=== PATIENT | female | born 1950 | race Caucasian/White ===

== ENCOUNTER 2024-03-21 14:22 | Outpatient (AMB) | payer MEDICARE, SELFPAY ==
--- NOTE | 2024-03-21 14:22 | A.OFFVIS_ITS ---
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 Patient states right shoulder surgery was discussed but due to multiple complex medical issues it would be a difficult recovery. She has received multiple cortisone injections at [facility] with last injection about 1 week ago per patient. Patient reports multiple falls due to advancing neuropathy in both feet and legs. Reports recent fall 3 weeks ago and was diagnosed T12 compression fracture per lumbar spine xray at [facility]. Reports currently treated with medication and has not considered any interventional treatments at this time. She reports moderate-severe mid to low back pain with midline tenderness, worse with lumbar extension. She reports history of old comp ression fractures which have been stable. Patient has been managing her pain Opana, amantadine, oxymorphone, and has taken low dose NSAID with caution due to CKD stage 3. Patient reports exacerbation of right shoulder pain with any activity especially with overhead reaching, cross body movement and range of motion of the RUE with moderate to severe pain. She has noted weakness with hand grasp as well as difficulty opening jars and intermittent numbness and tingling. Patient uses walker with seat with transfers and ambulation. Patient completed PT in the past with minimal improvement. She reports her pain has been progressively worsening and she in no longer able to participate in home exercise program. Denies any fever, chills, dizziness, chest pain or pressure, bladder or bowel dysfunction or saddle anesthesia. Location: Right shoulder, mid-low midline back pain, bilateral feet Duration: Chronic pain for many years, progressively worsening Characteristics of symptom or complaint: Aching, sharp, burning, tingling, numbness, stabbing, throbbing Aggravating or associated factors: Any movement, pulling, ROM, walking, sleep Relieving factors: Minimal relief with injections, OTC/Rx medications, heat/ice Treatment: PT, Injections, prior right shoulder surgery [facility] Medical History (Updated 03/22/24 @ 09:49 by JAQUELINE Whitley) Osteoarthritis of right shoulder Neuropathic pain Opioid dependence Hypertension Hypothyroidism Stage 3 chronic kidney disease Right shoulder pain Leg swelling Surgical History (Updated 03/22/24 @ 09:49 by JAQUELINE Whitley) History of shoulder surgery Social History (Updated 03/21/24 @ 14:36 by Lelia Matthews) Alcohol intake: current Alcohol intake frequency: a few times a month Review of Systems Const All systems reviewed & are unremarkable except as noted in HPI and below Physical Exam Vital Signs: Last Vital Signs Pulse 68 03/21/24 14:27 BP 130/78 03/21/24 14:27 Pulse Ox 97 03/21/24 14:27 Oxygen Delivery Method Room Air 03/21/24 14:27 BMI result Body Mass Index 29.2 General: Appears afebrile. Alert and oriented. Mood and affect appropriate. Follows and participates in conversation appropriately. Respiratory effort is unlabored. No cough. Able to transition from sit to stand with assistance of walker with seat. Neck Neck: Yes normal visual inspection, Yes no lymphadenopathy, Yes supple, No anterior neck swelling and Yes no JVD General: Yes no CVA tenderness Back/Spine/Pelvis Back: no CVA tenderness Cervical Spine: cervical muscular tenderness, pain with cervical ROM and No Cervical spine tenderness Thoracic/Lumbar Spine: thoracic and lumbar spine normal to inspection, No Thoracic/lumbar spine scar(s), Lasegue's sign negative, straight leg raise negative bilaterally, pain with thoraco-lumbar ROM, paraspinal muscle tenderness, thoraco-lumbar ROM limited, thoracic spinal tenderness (lower thoracic) and lumbar spinal tenderness (mid-lower spine) Pelvis: no buttock tenderness Sacroiliac joints: bilaterally nontender Extrem Other: There is decreased sensation over the soles of the feet and the toes bilaterally. Reports numbness, burning, hot, tingling in both feet, worse at night time. No soft tissue swelling or warmth. +2 pedal pulses bilaterally. General: Yes capillary refill normal, Yes no calf tenderness, No clubbing, No cyanosis and Yes edema (+1 BLE) Right upper extremity: shoulder/upper arm (Limited ROM due to pain with IR/ER ) Details: tenderness Location: of the A-C joint and over the subacromial bursa, swelling (mild global right shoulder) and crepitus; no ecchymosis and no unusual warmth Results Reviewed Results Reviewed: No imaging reports are available for review today. Assessment & Plan Assessment & Plan (1) T12 compression fracture: Code(s): S22.080A - Wedge compression fracture of T11-T12 vertebra, initial encounter for closed fracture Category: Medical (2) Intractable low back pain: Code(s): M54.59 - Other low back pain Category: Medical (3) Lumbar degenerative disc disease: Code(s): M51.36 - Other intervertebral disc degeneration, lumbar region Category: Medical (4) Chronic neuropathic pain: Code(s): M79.2 - Neuralgia and neuritis, unspecified; G89.29 - Other chronic pain Category: Medical (5) Osteoarthritis of right shoulder: Code(s): M19.011 - Primary osteoarthritis, right shoulder Category: Medical (6) Right shoulder pain: Code(s): M25.511 - Pain in right shoulder Category: Medical Plan Discussed interventional treatments for chronic right shoulder pain, including right suprascapular nerve block for potential RFA vs suprascapular peripheral nerve stimulator and PRP injections. Schedule Right Diagnostic Surpascaupular nerve block with local and fluoroscopy. Expectations, risks and benefits were reviewed. Patient is aware she will be contacted to schedule this procedure. If no relief, will consider PRP intra- articular shoulder injection per patient's request. Will try to arrange topical 8% capsaicin application for bilateral foot neuropathic pain once we have confirmed availability. We also discussed neuromodulation with SCS trial vs implant. Informational pamphlets were provided today for procedures discussed today. Medical release request sent to [facility] for most recent lumbar spine xrays. Will proceed with lumbar spine MRI to further evaluate recent T12 compression fracture due to mechanical fall. Patient requests open MRI at [facility]. All questions and concerns have been answered and the patient agreed with the plan. Follow up after injections/MRI review and sooner as needed. Orders: Orders MR lumbar spine wo con 03/21/24 M51.36 - Other intervertebral disc degeneration, lumbar region, M54.59 - Other low back pain, S22.080A - Wedge compression fracture of T11-T12 vertebra, initial encounter for closed fracture Coding Level of Care Code New Pt Level 4 (73619) Diagnoses T12 compression fracture S22.080A Intractable low back pain M54.59 Lumbar degenerative disc disease M51.36 Chronic neuropathic pain M79.2; G89.29 Osteoarthritis of right shoulder M19.011 Right shoulder pain M25.511
[2024-03-21 14:27] VITALS: BP 130/78; PULSE 68; O2SAT 97; BMI 29.2
== END 2024-03-21 15:30 | disposition home or self-care (01) ==
PROVIDERS: PCP Family Medicine; Referring Provider Internal Medicine; Visit Provider Nurse Practitioner Family
DX: G89.29 Other chronic pain (principal); M25.511 Pain in right shoulder; M19.011 Primary osteoarthritis, right shoulder; M54.59 Other low back pain; M51.36 Other intervertebral disc degeneration, lumbar region; M79.2 Neuralgia and neuritis, unspecified; S22.080A Wedge compression fracture of T11-T12 vertebra, initial encounter for closed fracture
CPT/HCPCS: 99204

== ENCOUNTER → 2024-03-21 14:22 | Outpatient (BNVA) | payer MEDICARE, SELFPAY | PROVIDERS: PCP Family Medicine; Referring Provider Internal Medicine; Visit Provider Nurse Practitioner Family | DX: M19.011 Primary osteoarthritis, right shoulder (principal); M51.36 Other intervertebral disc degeneration, lumbar region; M79.2 Neuralgia and neuritis, unspecified; G89.29 Other chronic pain; S22.080D Wedge compression fracture of T11-T12 vertebra, subsequent encounter for fracture with routine healing; X58.XXXD Exposure to other specified factors, subsequent encounter | CPT/HCPCS: 99202 ==

== ENCOUNTER 2024-04-17 15:17 | Outpatient (AMB) | payer MEDICARE, SELFPAY ==
[2024-04-17 15:18] VITALS: BMI 29.5
--- NOTE | 2024-04-17 15:18 | MHC.OFFVIS ---
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 Denies any recent cough, cold, infection, fever, any significant changes in her medical history, medications or recent hospitalizations. PRIOR: Patient is a pleasant 73 years old female with prior history of chronic right shoulder pain due severe arthritis and rotator cuff tendinopathy posttraumatic after fall and humerus fracture and previous rotator cuff repair, CKD, opioid dependence, and chronic severe lower extremities neuropathic pain has been referred to our office by her PCP for potential shoulder nerve ablation and treatments for neuropathy. Patient states right shoulder surgery was discussed but due to multiple complex medical issues it would be a difficult recovery. She has received multiple cortisone injections at [facility] with last injection about 1 week ago per patient. Patient reports multiple falls due to advancing neuropathy in both feet and legs. Reports recent fall 3 weeks ago and was diagnosed T12 compression fracture per lumbar spine xray at [facility]. Reports currently treated with medication and has not considered any interventional treatments at this time. She reports moderate-severe mid to low back pain with midline tenderness, worse with lumbar extension. She reports history of old compression fractures which have been stable. Patient has been managing her pain Opana, amantadine, oxymorphone, and has taken low dose NSAID with caution due to CKD stage 3. Patient reports exacerbation of right shoulder pain with any activity especially with overhead reaching, cross body movement and range of motion of the RUE with moderate to severe pain. She has noted weakness with hand grasp as well as difficulty opening jars and intermittent numbness and tingling. Patient uses walker with seat with transfers and ambulation. Patient completed PT in the past with minimal improvement. She reports her pain has been progressively worsening and she in no longer able to participate in home exercise program. Denies any fever, chills, dizziness, chest pain or pressure, bladder or bowel dysfunction or saddle anesthesia. Location: Right shoulder, mid-low midline back pain, bilateral feet Duration: Chronic pain for many years, progressively worsening Characteristics of symptom or complaint: Aching, sharp, burning, tingling, numbness, stabbing, throbbing Aggravating or associated factors: Any movement, pulling, ROM, walking, sleep Relieving factors: Minimal relief with injections, OTC/Rx medications, heat/ice Treatment: PT, Injections, prior right shoulder surgery [facility] Medical History Osteoarthritis of right shoulder Neuropathic pain Opioid dependence Hypertension Hypothyroidism Stage 3 chronic kidney disease Right shoulder pain Leg swelling Surgical History History of shoulder surgery Social History Alcohol intake: current Alcohol intake frequency: a few times a month Review of Systems Const All systems reviewed & are unremarkable except as noted in HPI and below ENT Reports Normal hearing present Neuro Reports Normal hearing present and Denies confusion Psych Denies confusion Physical Exam Const General: cooperative, alert and awake; No confusion Orientation/consciousness: patient oriented x3 and No confusion Resp Effort & Inspection: able to speak in complete sentences, no audible wheezes and no cough Neuro General: patient oriented x3 and No confusion Cranial nerves: Yes Normal hearing present Cognition (Neuro): normal cognition Psych Mental Status: mental status grossly normal Speech and movement: Clear speech present Affect: normal affect Attitude: cooperative Thought process: Normal thought process present Thought content: Normal thought content present and No Depressive thoughts present Insight: Good insight present (Psych) Judgement: Good judgement present (Psych) Telehealth Telehealth Telehealth Platform: Telephone Location of provider rendering services: practice address Location of patient: address on file Patient Identification confirmed using: Name, : Yes Telehealth method: voice only Patient verbally consented to treatment: Yes Patient verbally consented to billing insurance company: Yes Patient informed of any privacy concerns related to visit: Yes Minutes spent on Phone/Video with Pt.: 16 Results Reviewed Results Reviewed: MR SPINE LUMBAR without CONTRAST 03/30/24 at [facility] INDICATION: Low back pain for 3 years. Evaluate wedge compression fracture. TECHNIQUE: Unenhanced multiplanar, multisequence MR imaging of the lumbar spine. COMPARISON: XR lumbar 03/15/2024 - REPORT ONLY, (images unavailable). FINDINGS: Ffqa-nk-nyropcsb multilevel degenerative disc disease with loss of disc height and disc desiccation seen diffusely throughout the lumbar spine. There is appears to be an inferior endplate depression fracture at T12 level. No significant retropulsion. Vertebral heights otherwise preserved. No malalignment. At L1-2 concentric disc bulge with gzxe-sk-rbgoqukj canal narrowing and moderate bilateral foraminal narrowing. At L2-3 concentric disc bulge and slight retrolisthesis of L2 on L3 with zlzm-as-nwliwlse canal narrowing and moderate bilateral foraminal narrowing. Type II endplate changes seen at this level. At L3-4 concentric disc bulge with at least moderate canal narrowing and moderate bilateral foraminal narrowing. At L4-5 concentric disc bulge with nfqs-ou-mdilfuvo canal narrowing and moderate bilateral foraminal narrowing. At L5-S1 concentric disc bulge with bxpz-zv-bompboog canal narrowing and moderate bilateral foraminal narrowing. IMPRESSION: 1. Ocmy-mc-nyberxig multilevel degenerative disc disease with loss of disc height and disc desiccation seen diffusely throughout the lumbar spine. 2. Inferior endplate depression fracture at L1 level. Mild loss of vertebral height. No significant retropulsion. 3. Vertebral heights otherwise preserved. No malalignment. 4. At L2-3 concentric disc bulge and slight retrolisthesis of L2 on L3 with zamv-hz-pmkgcuda canal narrowing and moderate bilateral foraminal narrowing. Type II endplate changes seen at this level. 5. At L3-4 concentric disc bulge with at least moderate canal narrowing and moderate bilateral foraminal narrowing. 6. At remaining levels, canal and foraminal narrowing appear mild/zcyw-ko-kvhodcff. 7. STIR signal abnormality associated with the compression fracture at T12 level. No other STIR signal abnormalities to suggest soft tissue or ligamentous injury. Assessment & Plan Assessment & Plan (1) T12 compression fracture: Code(s): S22.080A - Wedge compression fracture of T11-T12 vertebra, initial encounter for closed fracture Category: Medical (2) Intractable low back pain: Code(s): M54.59 - Other low back pain Category: Medical (3) Chronic neuropathic pain: Code(s): M79.2 - Neuralgia and neuritis, unspecified; G89.29 - Other chronic pain Category: Medical (4) Right shoulder pain: Code(s): M25.511 - Pain in right shoulder Category: Medical (5) Lumbar degenerative disc disease: Code(s): M51.36 - Other intervertebral disc degeneration, lumbar region Category: Medical (6) Osteoarthritis of right shoulder: Code(s): M19.011 - Primary osteoarthritis, right shoulder Category: Medical Plan Discussed lumbar spine MRI results, significant for inferior endplate depression fracture at T12 level. No significant retropulsion. Patient is scheduled for Bone scan tomorrow and will notify our office with results. Will review MRI imaging with Dr. Resendez to assess degree of retropulsion prior to consideration of T12 kyphoplasty. Right shoulder pain-patient would like to hold off on right diagnostic suprascapular nerve block at this time. Topical 8% capsaicin application for bilateral foot neuropathic pain has been scheduled for 05/18/24. We reviewed this procedure today again. EMLA cream has been sent to patient's pharmacy to be applied 15-30 min prior to upcoming Qutenza visit. All questions and concerns have been answered and the patient agreed with the plan. Follow up bone scan review and sooner as needed. I hereby testify that I spent 16 minutes in conversation with this patient as well as with planning and coordinating care for this patient and organizing this note. Coding Level of Care Code Tele Est Pt Level 4 (96864) Diagnoses T12 compression fracture S22.080A Intractable low back pain M54.59 Chronic neuropathic pain M79.2; G89.29 Right shoulder pain M25.511 Lumbar degenerative disc disease M51.36 Osteoarthritis of right shoulder M19.011
== END 2024-04-17 15:35 | disposition home or self-care (01) ==
LOC: HO.PMC 15:17
PROVIDERS: PCP Internal Medicine; Visit Provider Nurse Practitioner Family
DX: S22.080A Wedge compression fracture of T11-T12 vertebra, initial encounter for closed fracture (principal); M54.59 Other low back pain; M79.2 Neuralgia and neuritis, unspecified; G89.29 Other chronic pain; M25.511 Pain in right shoulder; M51.36 Other intervertebral disc degeneration, lumbar region; M19.011 Primary osteoarthritis, right shoulder
CPT/HCPCS: 99214

== ENCOUNTER → 2024-04-17 15:17 | Outpatient (BNVA) | payer MEDICARE, SELFPAY | PROVIDERS: PCP Internal Medicine; Visit Provider Nurse Practitioner Family ==